=== PATIENT | female | born 1995 | race Native Hawaiian/Other Pacific Islander ===

== ENCOUNTER 2017-11-24 10:30 | Outpatient (CLI) | payer OTHER | END 2017-11-24 20:06 | disposition home or self-care (01) | LOC: US 10:30 | DX: R10.11 Right upper quadrant pain (principal) ==

== ENCOUNTER 2023-01-16 12:14 | Outpatient (CLI) | payer OTHER | END 2023-01-16 20:18 | disposition home or self-care (01) | LOC: US 12:14 | PROVIDERS: ATTEND Physician Assistant | DX: N63.12 Unspecified lump in the right breast, upper inner quadrant (principal) ==